=== PATIENT | male | born 1975 | race Caucasian/White ===

== ENCOUNTER 2018-05-13 03:51 | Emergency (ER) | payer OTHER ==
[~2018-05-13] VITALS: Ht 182.9 cm; Wt 75.0 kg
[2018-05-13 03:55] VITALS: Ht 182.9 cm; Wt 75.0 kg
[2018-05-13] MEDS ORDERED: FAMOTIDINE 20 MG INJ IV STA (04:02)
[2018-05-13] MEDS ORDERED: DIPHENHYDRAMINE 50 MG INJ IV STA (04:02)
[2018-05-13] MEDS ORDERED: METHYLPREDNISOLONE 125 MG INJ IV STA (04:02)
[2018-05-13] MEDS ORDERED: ONDANSETRON 4 MG INJ IV STA (04:40)
[2018-05-13] MEDS ORDERED: SOD CHLORIDE 0.9% 1,000 ML IV ONE (05:00)
[2018-05-13] MEDS ORDERED: RANI150T35 PO (05:53)
[2018-05-13] MEDS ORDERED: BEN50 PO (05:53)
[2018-05-13] MEDS ORDERED: PRED20TA PO (05:53)
[2018-05-13 05:54] VITALS: BP 139/95; PULSE 95; RESP 23
--- NOTE | 2018-05-13 05:56 | ERD ---
ER Documentation Chief Complaint Chief Complaint allergic reaction to sulfa for bacterial infection in prostate. +n/v +SOB HPI Is a 42-year-old male comes in with an allergic reaction to sulfa drugs that he was started on for bacterial infection in his prostate. He complains of bilateral itchiness to his upper and lower extremities and trunk. Also complains of rash. Denies shortness of breath. He says he does complain of nausea and had 2-3 episodes of vomiting. Denies any other current issues. ROS All systems reviewed and are negative except as per history of present illness. Medications Home Meds Active Scripts Ranitidine Hcl* (Zantac*) 150 Mg Tablet, 150 MG PO BID PRN for EPIGASTRIC PAIN, #10 TAB Prov:ANGELA HOOK 05/13/18 Prednisone* (Prednisone*) 20 Mg Tab, 40 MG PO DAILY for 4 Days, TAB Prov:ANGELA HOOK 05/13/18 Diphenhydramine Hcl* (Benadryl*) 50 Mg Cap, 50 MG PO Q6H PRN for ITCHING/RASH, #30 CAP Prov:ANGELA HOOK 05/13/18 Allergies Allergies: Coded Allergies: Sulfa (Sulfonamide Antibiotics) (Verified Allergy, Unknown, rashes, sob, n/ v, 05/13/18) Physical Exam Vitals Vital Signs Date Temp Pulse Resp B/P (MAP) Pulse Ox O2 O2 Flow FiO2 Time Delivery Rate 05/13/18 101.4 106 16 146/96 98 03:55 (113) Physical Exam Const: No acute distress Head: Atraumatic Eyes: Normal Conjunctiva ENT: Normal External Ears, Nose and Mouth. Neck: Full range of motion. No meningismus. Resp: Clear to auscultation bilaterally Cardio: Regular rate and rhythm, no murmurs Abd: Soft, non tender, non distended. Normal bowel sounds Skin: No petechiae or rashes Back: No midline or flank tenderness Ext: No cyanosis, or edema Neur: Awake and alert Psych: Normal Mood and Affect Results 24 hrs Laboratory Tests Test 05/13/18 05:12 Urine Color YELLOW Urine Clarity SLIGHTLY CLOUDY Urine pH 5.0 Urine Specific [place] 1.030 Urine Ketones 2+ mg/dL Urine Nitrite NEGATIVE mg/dL Urine Bilirubin NEGATIVE mg/dL Urine Urobilinogen NEGATIVE mg/dL Urine Leukocyte Esterase NEGATIVE [place]/ul Urine Microscopic RBC 12 /HPF Urine Microscopic WBC 1 /HPF Urine Squamous Epithelial Cells FEW /HPF Urine Mucus FEW /HPF Urine Hemoglobin 2+ mg/dL Urine Glucose NEGATIVE mg/dL Urine Total Protein 3+ mg/dl Current Medications Medications Dose Sig/Benjamin Start Time Status Last (Trade) Ordered Route PRN Stop Time Admin Dose Reason Admin 50 mg ONCE STAT 05/13/18 DC 05/13/18 Diphenhydrami IV 04:02 04:57 ne HCl 05/13/18 04:03 (Benadryl) Famotidine 20 mg ONCE STAT 05/13/18 DC 05/13/18 (Pepcid Iv) IV 04:02 04:57 05/13/18 04:03 125 mg ONCE STAT 05/13/18 DC 05/13/18 Methylprednis IV 04:02 04:57 olone Sodium 05/13/18 04:03 Succinate (Solu-Medrol) Sodium 1,000 ml @ Q1H ONCE 05/13/18 05/13/18 Chloride 1,000 mls/hr IV 05:00 04:58 05/13/18 05:59 Ondansetron 4 mg ONCE STAT 05/13/18 DC 05/13/18 HCl (Zofran IV 04:40 04:57 Inj) 05/13/18 04:41 Procedures/MDM Emergency department course: Patient seen about by triage nurse. Placed in bed from evaluation. Management is accepted. Benadryl, Solu-Medrol, Pepcid, normal saline fluid bolus. Symptoms immediately resolved within 20 minutes. Patient fails much better at this time. Medical statement: 42-year-old male comes in with complaints of allergic reaction to drug. He is been advised stop using any and all sulfa drugs. Patient will be discharged home with Benadryl, Zantac, prednisone. Follow with PCP. Departure Diagnosis: Primary Impression: Allergic reaction Encounter type: initial encounter Qualified Codes: T78.40XA - Allergy, unspecified, initial encounter Condition: Stable Patient Instructions: Allergic Reaction, Drug ANGELA HOOK May 13, 2018 05:56
[2018-05-13] MEDS ORDERED: EMTR1TAB17 PO (05:59)
[2018-05-13] MEDS ORDERED: ESCI5TAB10 PO (05:59)
== END 2018-05-13 06:07 | disposition home or self-care (01) ==
LOC: E/R 03:51
DX: R21 Rash and other nonspecific skin eruption (principal)
CPT/HCPCS: 71045; 81001; 96374; 96375; 99284; J1200; J2405; J2930; J7030